=== PATIENT | female | born 1990 | race African-American/Black ===

== ENCOUNTER 2017-05-03 23:21 | Emergency (ER) | payer MEDICAID ==
[~2017-05-03] VITALS: Ht 170.2 cm; Wt 91.0 kg
[~2017-05-03 23:21] MED LIST: MAGN400 PO; PHEN12.5 PR; PROM1SUP7 RECTAL; PROM25TA5 PO; PYRI50TA PO; RANI150 PO; [UNRECOGNIZED DRUG - OTHER] CHEW
[2017-05-03 23:24] VITALS: BP 150/90; PULSE 83; RESP 18; TEMP 98.6; O2SAT 100
== END 2017-05-03 23:53 | disposition left against medical advice (07) ==
LOC: PHED 23:21
DX: K08.89 Other specified disorders of teeth and supporting structures (principal)
CPT/HCPCS: 99281

== ENCOUNTER 2017-05-08 00:33 | Emergency (ER) | payer MEDICAID ==
[~2017-05-08] VITALS: Ht 170.2 cm; Wt 90.5 kg
[2017-05-08 00:34] VITALS: BP 160/89; PULSE 82; RESP 16; TEMP 98.6; O2SAT 99
== END 2017-05-08 02:40 | disposition left against medical advice (07) ==
LOC: NEPD 00:33
DX: K08.89 Other specified disorders of teeth and supporting structures (principal)
CPT/HCPCS: 99281

== ENCOUNTER 2017-07-26 17:21 | Emergency (ER) | payer MEDICAID ==
[~2017-07-26] VITALS: Ht 170.2 cm; Wt 91.3 kg
[~2017-07-26 17:21] MED LIST changes: -MAGN400 PO; -PHEN12.5 PR; -PROM25TA5 PO; -PYRI50TA PO; -RANI150 PO; -[UNRECOGNIZED DRUG - OTHER] CHEW
[2017-07-26 17:34] VITALS: BP 141/73; PULSE 91; RESP 16; TEMP 99.2; O2SAT 99
[2017-07-26 17:48] LABS: BILIRUBIN, URINE NEG (NEG); BLOOD, URINE NEG (NEG); GLUCOSE,URINE NEG (NEG); KETONE, URINE TRACE mg/dL (NEG); NITRITE,URINE NEG (NEG); URINE COLOR YELLOW (YELLW/STRAW); URINE LEUKOCYTE ESTERASE NEG (NEG)
[2017-07-26 17:54] LABS: MUCUS URINE MOD /lpf (OCC); RBC, URINE 0-3 /hpf (0-3); SQUAMOUS EPITHELIAL CELL URINE 0-5 /hpf (0-5); WBC, URINE 0-2 /hpf (0-5)
--- NOTE | 2017-07-26 18:10 | PD ---
HPI Chief Complaint: Complaint Time Seen by Provider: 17:44 Travel History International Travel<30 days: No Contact w/Intl Traveler<30days: No Traveled to known affect area: No History of Present Illness HPI 27y female presents to the ED for evaluation of LLQ pain and vaginal discharge since Tuesday. Says she has had a constant pain since Tuesday, rated 7/10, nonradiating. Says the pain is aching and feels like a constant ' cramp' that won't go away. Denies history of ovarian cysts or complications. Denies history of STI/STDs but says she has a history of bacterial vaginosis. Says that she is monogamous and believes her partner is as well. Says the discharge has had a foul order and is white/yellow in color. Says that she thought this may have been a urinary tract infection because of the pain and frequency has had. Says she had a temperature of 99 degrees yesterday but denies any actual fevers now. She has no other complaints today. PFSH Past Medical History Hx Anticoagulant Therapy: No Autoimmune Disease: No Anxiety: Yes (pt denies at this time) Depression: No Cancer: No Cardiovascular Problems: No Chemotherapy: No Cerebrovascular Accident: No Diabetes: No Diminished Hearing: No Endocrine: No Gastrointestinal Disorders: Yes GERD: Yes Genitourinary: No Immune Disorder: No Implanted Vascular Access Dvce: No Musculoskeletal: Yes Neurologic: No Psychiatric: Yes (patient denies at this time) Reproductive: No Respiratory: No Immunizations Current: Yes ?: Not LMP: 07/15/17 : 2 Para: 1 Miscarriage: 0 Past Surgical History Section: Yes Gynecologic Surgery: Yes ( section) Hysterectomy: No Other Surgery: Yes Social History Alcohol Use: No Tobacco Use: No Substance Use: No Allergies-Medications (Allergen,Severity, Reaction): Coded Allergies: metoclopramide (Unverified Allergy, Unknown, 07/26/17) Reported Meds & Prescriptions Reported Meds & Active Scripts Active No Active Prescriptions or Reported Medications Review of Systems Except as stated in HPI: all other systems reviewed are Neg Physical Exam Narrative GENERAL: Well-developed, well-nourished in no apparent distress, resting comfortably but SKIN: Focused skin assessment warm/dry. HEAD: Atraumatic. Normocephalic. EYES: Pupils equal and round. No scleral icterus. No injection or drainage. ENT: No nasal bleeding or discharge. Mucous membranes pink and moist. NECK: Trachea midline. No JVD. CARDIOVASCULAR: Regular rate and rhythm. No murmur appreciated. RESPIRATORY: No accessory muscle use. Clear to auscultation. Breath sounds equal bilaterally. GASTROINTESTINAL: Abdomen soft, non-tender, nondistended. Hepatic and splenic margins not palpable. MUSCULOSKELETAL: No obvious deformities. No clubbing. No cyanosis. No edema. GENITOURINARY: Normal external genitalia without lesions or erythema. Vaginal vault without blood. Yellow discharge Cervical os was closed without drainage. No cervical motion tenderness. Uterus nontender and nonenlarged. Left adnexa TTP, slightly enlarged when compared to the right. Mild TTP to midline No CVA tenderness NEUROLOGICAL: Awake and alert. No obvious cranial nerve deficits. Motor grossly within normal limits. Normal speech. PSYCHIATRIC: Appropriate mood and affect; insight and judgment normal. Data Data Last Documented VS Vital Signs Date Time Temp Pulse Resp B/P (MAP) Pulse Ox O2 Delivery O2 Flow Rate FiO2 07/26/17 17:34 99.2 91 16 141/73 (95) 99 Orders Orders Urinalysis - C+S If Indicated (07/26/17 17:23) Ed Urine Pregnancytest Poc (07/26/17 17:23) Wet Prep Profile (07/26/17 18:01) Gc And Chlamydia Pcr (07/26/17 18:12) Ed Discharge Order (07/26/17 18:53) Labs Laboratory Tests Test 07/26/17 17:30 18 18:05 07/26/17 18:15 Urine Color YELLOW Urine Turbidity CLEAR Urine pH 6.0 Urine Specific [place] 1.025 Urine Protein NEG mg/dL Urine Glucose (UA) NEG mg/dL Urine Ketones TRACE mg/dL Urine Occult Blood NEG Urine Nitrite NEG Urine Bilirubin NEG Urine Urobilinogen 0.2 MG/DL Urine Leukocyte Esterase NEG Urine RBC 0-3 /hpf Urine WBC 0-2 /hpf Urine Squamous Epithelial Cells 0-5 /hpf Urine Mucus MOD /lpf Microscopic Urinalysis Comment CULT NOT INDICATED Clue Cells (Wet Prep) NONE SEEN Vaginal Trichomonas (Wet Prep) NONE SEEN Vaginal Yeast (Wet Prep) NONE SEEN Chlamydia trachomatis DNA (PCR) NOT DETECTED Neisseria gonorrhoeae DNA (PCR) NOT DETECTED MDM Medical Decision Making Medical Screen Exam Complete: Yes Emergency Medical Condition: Yes Differential Diagnosis UTI, bacterial vaginosis, trichomoniasis, ovarian cyst, ovarian torsion Narrative Course 27 year female presents emergency department for what she thought was urinary tract infection symptoms. Patient actually complains of left lower quadrant/ pelvic pain and vaginal discharge. Vital signs are stable. Physical exam findings are consistent with some tenderness palpation of the left adnexal region upon pelvic exam. There is some yellow discharge. I ordered a transvaginal US to evaluate for possible abscess, torsion, or other process. I discussed the treatment plan with the patient and she agreed. [id number] test negative. 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 Patient departed the emergency department prior to the lab results in the pelvic ultrasound. I offered empirical treatment of GC/Chlamydia, however she did not want to wait. I advised her to return to the emergency department especially if her symptoms worsen. Advised her to follow-up with the primary care physician for further treatment and evaluation. AMA: The risks of leaving against medical advice without further evaluation treatment were discussed with the patient. These risks include cardiac dysfunction, cardiac dysrhythmia, possible heart attack, possible stroke or . The patient indicated understanding of these risks and appeared to have the capacity to make this decision. Diagnosis Primary Impression: Vaginal discharge Additional Impression: Pelvic pain in female Referrals: [employer] Supervisor Primary Care Physician Additional Instructions: Follow up with your primary care physician this week for further evaluation. If your symptoms persist or worsen, return to the ED. Scripts No Active Prescriptions or Reported Meds Disposition: 07 AGAINST MEDICAL ADVICE Condition: Stable Belen Schumacher Jul 26, 2017 18:10
== END 2017-07-26 18:58 | disposition left against medical advice (07) ==
LOC: PHED 17:21
DX: K21.9 Gastro-esophageal reflux disease without esophagitis (principal); N89.8 Other specified noninflammatory disorders of vagina; R10.2 Pelvic and perineal pain
CPT/HCPCS: 81001; 84703; 87210; 87491; 87591; 99284